=== PATIENT | male | born 1995 | race Caucasian/White ===

== ENCOUNTER 2021-01-16 19:38 | Emergency (ER) | payer MEDICAID ==
[~2021-01-16] VITALS: Ht 162.6 cm; Wt 81.8 kg
[2021-01-16 19:44] VITALS: BP 138/85
[2021-01-16] MEDS ORDERED: LIDO20SO16 PO (20:41)
[2021-01-16] MEDS ORDERED: ACET-1025 PO (20:41)
== END 2021-01-16 20:50 | disposition home or self-care (01) ==
LOC: ER 19:39
DX: K08.89 Other specified disorders of teeth and supporting structures (principal); Z79.899 Other long term (current) drug therapy
CPT/HCPCS: 99283

== ENCOUNTER 2022-02-16 16:19 | Emergency (ER) | payer MEDICAID ==
[~2022-02-16] VITALS: Ht 162.6 cm; Wt 81.8 kg
[~2022-02-16 16:19] MED LIST: LIDO20SO16 PO
[2022-02-16 16:36] VITALS: BP 138/80
[2022-02-16] MEDS ORDERED: proparacaine 0.5% ophthalmic drops 15ml EACHEYE ONE (17:20)
[2022-02-16] MEDS ORDERED: ERYT1OIN6 LEFTEYE (17:50)
[2022-02-16] MEDS ORDERED: erythromycin ophthalmic ointment 1gm tube LEFTEYE ONE (17:50)
== END 2022-02-16 18:58 | disposition home or self-care (01) ==
LOC: ER 16:19
DX: T15.92XA Foreign body on external eye, part unspecified, left eye, initial encounter (principal); S05.02XA Injury of conjunctiva and corneal abrasion without foreign body, left eye, initial encounter; Z98.818 Other dental procedure status; X58.XXXA Exposure to other specified factors, initial encounter; Z79.899 Other long term (current) drug therapy; Y93.01 Activity, walking, marching and hiking; Y92.89 Other specified places as the place of occurrence of the external cause; Y99.8 Other external cause status
CPT/HCPCS: 99283; 99284

== ENCOUNTER 2022-02-17 10:39 | Emergency (ER) | payer MEDICAID ==
[~2022-02-17 10:39] MED LIST changes: +ERYT1OIN6 LEFTEYE
[2022-02-17 11:07] VITALS: BP 115/77
== END 2022-02-17 13:33 | disposition home or self-care (01) ==
LOC: ER 10:39
DX: T15.92XD Foreign body on external eye, part unspecified, left eye, subsequent encounter (principal); Z79.899 Other long term (current) drug therapy
CPT/HCPCS: 99282

== ENCOUNTER 2022-05-29 12:54 | Emergency (ER) | payer MEDICAID ==
[~2022-05-29] VITALS: Ht 165.1 cm; Wt 72.9 kg
[~2022-05-29 12:54] MED LIST changes: -ERYT1OIN6 LEFTEYE
[2022-05-29 13:00] VITALS: BP 110/65
[2022-05-29] MEDS ORDERED: GABA-530 PO (14:45)
== END 2022-05-29 15:00 | disposition home or self-care (01) ==
LOC: ER 12:54
DX: R20.2 Paresthesia of skin (principal)
CPT/HCPCS: 99283

== ENCOUNTER 2022-07-29 16:42 | Emergency (ER) | payer MEDICAID ==
[~2022-07-29] VITALS: Ht 162.6 cm; Wt 77.0 kg
[~2022-07-29 16:42] MED LIST changes: +GABA-530 PO
[2022-07-29 16:47] VITALS: BP 107/68
== END 2022-07-29 17:32 | disposition left against medical advice (07) ==
LOC: ER 16:43
DX: J00 Acute nasopharyngitis [common cold] (principal); Z53.21 Procedure and treatment not carried out due to patient leaving prior to being seen by health care provider

== ENCOUNTER 2023-10-26 18:31 | Emergency (ER) | payer MEDICAID ==
[~2023-10-26] VITALS: Ht 160 cm; Wt 180.0 kg
[2023-10-26 18:38] VITALS: BP 151/98; PULSE 98; RESP 14; TEMP 98.2; O2SAT 100
[2023-10-26] MEDS: LIDOcaine 1% 30ml preserv. free vial IJ STA (19:22)
[2023-10-26] MEDS ORDERED: CEPH-585 PO (19:39)
[2023-10-26] MEDS ORDERED: IBUP-1986 PO (19:39)
== END 2023-10-26 19:52 | disposition home or self-care (01) ==
LOC: ER 18:32
DX: L60.0 Ingrowing nail (principal); Z79.899 Other long term (current) drug therapy
CPT/HCPCS: 11750; 99285; A6449

== ENCOUNTER 2023-12-12 17:12 | Emergency (ER) | payer MEDICAID ==
[~2023-12-12] VITALS: Ht 162.6 cm; Wt 86.5 kg
[~2023-12-12 17:12] MED LIST changes: +IBUP-1986 PO
[2023-12-12 17:17] VITALS: BP 133/86; PULSE 85; RESP 20; TEMP 97; O2SAT 99
[2023-12-12] MEDS ORDERED: SULF1TAB48 PO (17:21)
== END 2023-12-12 17:25 | disposition home or self-care (01) ==
LOC: ER 17:13
DX: L60.0 Ingrowing nail (principal); Z79.1 Long term (current) use of non-steroidal anti-inflammatories (NSAID); Z79.899 Other long term (current) drug therapy
CPT/HCPCS: 99283

== ENCOUNTER 2024-01-01 16:55 | Emergency (ER) | payer MEDICAID ==
[~2024-01-01] VITALS: Ht 162.6 cm; Wt 86.8 kg
[2024-01-01 17:14] VITALS: BP 127/91; PULSE 80; RESP 18; O2SAT 98
[2024-01-01] MEDS ORDERED: LIDOcaine 1% W/epiNEPHrine 1:200,000 10ml vial IJ ONE (19:10)
[2024-01-01] MEDS: LIDOcaine 1% W/epiNEPHrine 1:100,000 20ml vial IJ ONE (19:52)
[2024-01-01] MEDS ORDERED: CEPH-585 PO (19:53)
[2024-01-01 19:59] VITALS: TEMP 98.2
== END 2024-01-01 20:09 | disposition home or self-care (01) ==
LOC: ER 16:56
DX: L60.0 Ingrowing nail (principal); M79.674 Pain in right toe(s); Z79.2 Long term (current) use of antibiotics; Z79.1 Long term (current) use of non-steroidal anti-inflammatories (NSAID); Z79.899 Other long term (current) drug therapy
CPT/HCPCS: 11730; 11750; 99284; 99285; A6258; A6446; A6449